=== PATIENT | female | born 1945 | race Caucasian/White ===

== ENCOUNTER 2016-03-25 14:39 | Outpatient (CLI) | payer MEDICARE, OTHER ==
[2015-05-29 15:15] VITALS: BP 148/74
== END 2016-03-25 14:40 ==
LOC: POD 14:39
PROVIDERS: ATTEND Podiatrist
DX: B35.1 Tinea unguium (principal); M79.674 Pain in right toe(s); M79.675 Pain in left toe(s)
CPT/HCPCS: 11721; G0463

== ENCOUNTER 2016-04-12 10:52 | Outpatient (CLI) | payer MEDICARE, OTHER ==
[2015-05-29 15:15] VITALS: BP 148/74
--- NOTE | 2016-04-12 17:23 | Diagnostic Imaging Report ---
[facility] [address] 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 Findings: Examination left elbow in AP and lateral views demonstrates soft tissue swelling overlying the olecranon consistent with olecranon bursitis. There is no evident fracture and no lytic or blastic lesion. Impression: 1. Soft tissue swelling consistent with olecranon bursitis. Electronically signed on Apr 12, 2016 2:51:05 PM FISHERY BIOLOGIST by: Castro ARANDA
== END 2016-04-12 10:53 ==
LOC: RAD 10:52
PROVIDERS: ATTEND Family Medicine
DX: M70.32 Other bursitis of elbow, left elbow (principal)
CPT/HCPCS: 73070

== ENCOUNTER 2016-06-10 14:09 | Outpatient (CLI) | payer MEDICARE, OTHER ==
[2015-05-29 15:15] VITALS: BP 148/74
== END 2016-06-10 14:10 ==
LOC: POD 14:09
PROVIDERS: ATTEND Podiatrist
DX: B35.1 Tinea unguium (principal); M79.674 Pain in right toe(s); M79.675 Pain in left toe(s)
CPT/HCPCS: 11721; G0463

== ENCOUNTER 2016-09-09 13:56 | Outpatient (CLI) | payer MEDICARE, OTHER ==
[2015-05-29 15:15] VITALS: BP 148/74
== END 2016-09-09 13:57 ==
LOC: POD 13:56
PROVIDERS: ATTEND Podiatrist
DX: B35.1 Tinea unguium (principal); M79.674 Pain in right toe(s); M79.675 Pain in left toe(s)
CPT/HCPCS: 11721; G0463

== ENCOUNTER 2016-10-25 10:09 | Outpatient (CLI) | payer MEDICARE, OTHER ==
[2015-05-29 15:15] VITALS: BP 148/74
[2016-10-25 11:57] LABS: eGFR (African) > 60; eGFR (Non-African) > 60
== END 2016-10-25 10:10 ==
LOC: RAD 10:09
PROVIDERS: ATTEND Family Medicine
DX: Z13.6 Encounter for screening for cardiovascular disorders (principal); Z11.59 Encounter for screening for other viral diseases; Z78.0 Asymptomatic menopausal state
CPT/HCPCS: 36415; 77080; 80053; 80061; 86803

== ENCOUNTER 2016-12-30 13:50 | Outpatient (CLI) | payer MEDICARE, OTHER ==
[2015-05-29 15:15] VITALS: BP 148/74
--- NOTE | 2017-01-02 15:00 | CONSULTATION REPORT ---
REFERRING PHYSICIAN: Dr. Claire Bianchi CONSULTING PHYSICIAN: Reuben Bryant MD Dear Dr. Bianchi: REASON FOR CONSULT: Thank you for the consultation regarding Radha Araujo. HISTORY OF PRESENT ILLNESS: This is a 71-year-old white woman who suffers from Parkinson disease which has resulted in the patient being wheelchair bound and she has suffered a few falls. She has not injured herself in most of her falls except for 1, when she fell over a trash can and had several broken ribs. She had a bone density study in October which revealed a forearm T-score of minus 2.7. Lumbar and hip T-scores were in the osteopenic range of minus 1.3 and minus 1.7, respectively. She has a history of treatment with Fosamax for 5 years about 10 years ago. She does not smoke. Her family history was negative. She takes calcium and vitamin D supplements. She reached menopause in her 50s. She exercises daily on a stairmaster. PAST MEDICAL HISTORY: 1. Parkinson disease. 2. Anemia. 3. Numerous surgeries for Parkinson's. SOCIAL HISTORY: The patient does not smoke or drink. She is and lives in [place]. REVIEW OF SYSTEMS: She has lost 5 pounds. She has a little fatigue and weakness. She has some loss of smell, sore tongue, and some difficulty swallowing. She does have problems with heartburn and stomach upset. She has an occasional cough. Also, anxiety and depression. No dark stools or bloody stools. No urinary difficulties. No skin rashes, hives, or photosensitivity. PHYSICAL EXAMINATION: VITAL SIGNS: Weight: 108 pounds. Height: 5 feet 5 inches. T: 97.1, R: 12, heart rate of 98, BP: 120/72. HEENT: Grossly unremarkable. BACK: Thoracic spine, no kyphosis. LUNGS: Clear. IMAGING: I sit down and reviewed the bone density study with the patient. Her forearm does indeed reveal osteoporosis, which is not uncommon. However, the hip and spine reveal osteopenia in a patient who has previously been treated with Fosamax. IMPRESSION: Osteopenia. PLAN: 1. I would recommend the continuation of calcium and 8000 units of vitamin D daily. 2. Regular exercise as she is doing. 3. Fall precautions. 4. Repeat the bone density study in 2 years. If it worsens or her clinical situation worsens, would consider the addition of Prolia 60 mg subcutaneous every 6 months. Thank you very much for the opportunity to take care of your patient. Best regards, cc: Dr. lCaire ARANDA
== END 2016-12-30 13:52 ==
LOC: RHEU 13:50
PROVIDERS: ATTEND Internal Medicine
DX: M81.8 Other osteoporosis without current pathological fracture (principal)
CPT/HCPCS: 99213; G0463

== ENCOUNTER 2017-01-17 15:14 | Outpatient (CLI) | payer MEDICARE, OTHER ==
[2015-05-29 15:15] VITALS: BP 148/74
== END 2017-01-17 15:15 ==
LOC: POD 15:14
PROVIDERS: ATTEND Podiatrist
DX: B35.1 Tinea unguium (principal); M79.674 Pain in right toe(s); M79.675 Pain in left toe(s)
CPT/HCPCS: 11721; G0463

== ENCOUNTER 2017-01-21 08:20 | Emergency (ER) | payer MEDICARE, OTHER ==
[2017-01-21] MEDS ORDERED: Lidocaine 1% 5ml(IM or SUTURE)(PAIN CLINIC) ONE (08:36)
[2017-01-21 09:18] VITALS: BP 100/50
--- NOTE | 2017-01-21 16:00 | ED Physician Documentation ---
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 denies: neck, face Injury to Right Extremity: none Injury to Left Extremity: none - ROS CONST: no problems NEURO: dizziness. denies: anxiety, depression MS/SKIN/LYMPH: denies: weakness, numbness, neck pain, back pain, ankle swelling , leg swelling EYES/ENT: none. denies: problems with vision CVS/RESP: denies: chest pain, shortness of breath GI/: denies: problems urinating, nausea, vomiting - PAST HX Past History: other (parkinsons) Allergies/Adverse Reactions: Allergies Allergy/AdvReac Type Severity Reaction Status Date / Time No Known Allergies Allergy Verified 01/21/17 09:10 Home Medications: Ambulatory Orders Medication Instructions Recorded Ca Carbonate/Vitamin D3/Vit K 1 each PO 07/14/12 [Viactiv Soft Chew Tablet] Cyanocobalamin/Cobamamide [B-12 1 each SL 07/14/12 5,000 Mcg Sublingual Tab] Amantadine HCl [Amantadine] 100 mg PO 01/21/17 - SOCIAL HX Smoking History: non-smoker Alcohol Use: none Drug Use: none - FAMILY HX Family History: no significant history - VITAL SIGNS Vital Signs: Vital Signs Temp Pulse Resp BP Pulse Ox 98.0 F 82 16 100/50 95 01/21/17 09:16 01/21/17 09:16 01/21/17 09:16 01/21/17 09:16 01/21/17 09:16 - REVIEWED ASSESSMENTS Nursing Assessment Reviewed: Yes Vitals Reviewed: Yes Procedures Wound Location: head Wound's Depth, Shape: superficial, linear Wound Explored: clean Betadine Prep?: Yes Wound Repaired With: ben Layer Closure?: No Sterile Dressing Applied?: No Splint Applied?: No Sling Applied?: No ED Results Lab/Radiology - Orders Orders: ED Orders Category Date Time Status Lidocaine 1% 5ml(IM or SUTURE) [Xylocaine] Med 01/21/17 08:36 Discontinued 50 mg .ROUTE .STK-MED ONE Fall Physical Exam - Physical Exam General Appearance: mild distress Head: no swelling, trauma. No: non-tender Neck: non-tender, painless ROM Eye: SHAVON, EOMI ENT: nml external inspection Resp/CVS: chest non-tender, no ecchymosis, breath sounds nml, no resp. distress , heart sounds nml. No: rib tenderness, rib palpable fracture, subcutaneous emphysema Abdomen: soft, non-tender. No: distended, guarding Neuro: oriented x3, CN's nml as tested, sensation nml, motor nml, mood/affect nml Skin: color nml, no rash. No: cyanosis, diaphoresis, pallor Back: no CVA tenderness Extremities: atraumatic, pelvis stable Joint: joints nml, nml ROM - Cheryle Coma Score Eyes Open: Spontaneous Speech: Oriented Motor: Obeys Commands Discharge Clincal Impression: fall w/lac vertex scalp, parkinsons Referrals: Claire Bianchi MD [Primary Care Provider] - 2 Days Comments: pt elected ben w/o anesthetic-janusz well Condition: Stable Disposition: 01 HOME, SELF-CARE Decision to Admit: NO Decision Time: 16:04
== END 2017-01-21 09:00 | disposition home or self-care (01) ==
LOC: ED 08:20
DX: S01.81XA Laceration without foreign body of other part of head, initial encounter (principal); W19.XXXA Unspecified fall, initial encounter; Y93.9 Activity, unspecified; Y92.009 Unspecified place in unspecified non-institutional (private) residence as the place of occurrence of the external cause
CPT/HCPCS: 12002; 99283

== ENCOUNTER 2017-04-18 13:04 | Outpatient (CLI) | payer MEDICARE, OTHER | END 2017-04-18 13:10 | LOC: POD 13:04 | PROVIDERS: ATTEND Podiatrist | DX: B35.1 Tinea unguium (principal); M79.674 Pain in right toe(s); M79.675 Pain in left toe(s) | CPT/HCPCS: 11721; G0463 ==

== ENCOUNTER 2017-08-04 12:56 | Outpatient (CLI) | payer MEDICARE, OTHER | END 2017-08-04 13:49 | LOC: POD 12:56 | PROVIDERS: ATTEND Podiatrist | DX: B35.1 Tinea unguium (principal); M79.674 Pain in right toe(s); M79.675 Pain in left toe(s) | CPT/HCPCS: 11721; G0463 ==

== ENCOUNTER 2017-12-20 12:56 | Outpatient (CLI) | payer MEDICARE, OTHER ==
[2017-12-20 13:34] LABS: eGFR (Non-African) > 60
== END 2017-12-20 12:58 ==
LOC: RAD 12:56
PROVIDERS: ATTEND Family Medicine
DX: M81.0 Age-related osteoporosis without current pathological fracture (principal)
CPT/HCPCS: 36415; 77080; 80048; 82306

== ENCOUNTER 2019-01-29 13:41 | Outpatient (CLI) | payer MEDICARE, OTHER | END 2019-01-29 13:46 | LOC: LABRHC 13:41 | PROVIDERS: ATTEND Family Medicine | DX: R30.0 Dysuria (principal) | CPT/HCPCS: 87086 ==